=== PATIENT | female | born 1965 | race Caucasian/White ===

== ENCOUNTER → 2016-10-02 | Outpatient (CLI) | payer BC ==
[~2016-10-02] MED LIST: CETI10TA84 PO; FLNIN/ NAE; FLUT0.15 NAE; MULT-506 PO; MULT-513 PO; RECLAST IV.; SUMA1INJ5 IM; VALA500T39 PO
--- NOTE | 2016-10-02 10:18 | DIAGNOSTIC IMAGING REPORT ---
CT SCAN OF THE PARANASAL SINUSES CLINICAL HISTORY: Chronic sinusitis. COMPARISON STUDY: CT of the brain dated 07/09/2011. TECHNIQUE: High-resolution CT scan of the paranasal sinuses is performed. Images are reviewed in the axial, sagittal, and coronal planes. IV contrast was not administered for this examination. The examination is performed utilizing the fusion protocol. CT DOSE: 655.42 mGy.cm FINDINGS: Postoperative change: There are changes from previous maxillary antrectomy with antrostomy formation as well as ethmoid sinus resection. Maxillary antra: There is moderate bilateral mucosal thickening, left greater than right. Ethmoid cavities: Mild mucosal thickening is seen bilaterally, left greater than right. Sphenoid sinuses: Clear. Frontal sinuses: The frontal sinuses are diminutive. Mild mucosal thickening is seen on the left. Ostiomeatal complexes: The maxillary antrostomies are patent bilaterally. Frontoethmoidal and sphenoethmoidal recesses: Patent bilaterally. Carotid arteries: The carotid arteries are covered and without septal attachments. Ethmoid roofs: There is asymmetric elevation of the left ethmoid roof as compared to the right. Nasal turbinates: Normal in appearance. Nasal septum: There is mild rightward deviation of the bony nasal septum. Optic nerves: Covered. Orbits: The bony orbits are intact. Orbital contents are normal in appearance. Calvarium: The imaged calvarium is normal in appearance Mastoid air cells: Well pneumatized. Brain parenchyma: Partially visualized brain parenchyma is within normal limits. IMPRESSION: Paranasal sinus disease and postoperative change as above. Electronically signed by: Vipul Cole M.D. 10/02/2016 10:17 AM Dictated Date/Time: 10/02/2016 10:06 AM
== END | disposition home or self-care (01) ==
LOC: C.CTS 09:56
DX: J32.9 Chronic sinusitis, unspecified (principal)

== ENCOUNTER → 2016-11-23 | Outpatient (CLI) | payer BC ==
[2016-11-23 10:48] LABS: BASO % 0.3 %; BASO ABS # 0.01 K/uL (0-0.2); COMPLETE YES; EOS % 2.7 %; HEMATOCRIT 39.5 % (37-47); IG% 0.3 %; LYMPH % 32.2 %; LYMPH ABS # 0.96 K/uL (1.2-3.4); MEAN CELL VOLUME 105.3 fL (80-100); MEAN CORPUSCULAR HEMOGLOBIN 34.1 pg (25-34); MEAN CORPUSCULAR HGB CONC 32.4 g/dl (32-36); MEAN PLATELET VOLUME 10.3 fL (7.4-10.4); MONO % 10.4 %; NEUT % 54.1 %; PLATELET COUNT 200 K/uL (130-400); RED BLOOD COUNT 3.75 M/uL (4.2-5.4); WHITE BLOOD COUNT 2.98 K/uL (4.8-10.8)
[2016-11-23 10:50] LABS: POTASSIUM 4.3 mmol/L (3.5-5.1)
[2016-11-23 10:56] LABS: INR 0.9 (0.9-1.1); PARTIAL THROMBOPLASTIN RATIO 1.1
== END | disposition home or self-care (01) ==
LOC: C.CPL 09:31
DX: Z01.818 Encounter for other preprocedural examination (principal); Z01.810 Encounter for preprocedural cardiovascular examination

== ENCOUNTER → 2016-11-30 | Day surgery (SDC) | payer BC ==
[2016-11-29 09:53] VITALS: Ht 154.9 cm; Wt 70.5 kg
[~2016-11-30] VITALS: Ht 154.9 cm; Wt 70.5 kg
[~2016-11-30] MED LIST changes: +ATROPINE SULFATE 0.1 MG/ML 5ML SYR IV PRN; +CLINDAMYCIN PHOS 150 MG/ML 2 ML VIAL IV SCH; +DEXAMETHASONE SOD INJ 4 MG/ML VIAL ONE; +EpHEDrine SULFATE INJ 50 MG/ML AMP IV PRN; +EpINEphrine INJ 1MG/ML AMP 1 MG/ML AMP ONE; +FENTANYL CITRATE INJ 50 MCG/1 ML 2 ML VIAL IV PRN; +FENTANYL CITRATE INJ 50 MCG/1 ML 2 ML VIAL ONE; +LACTATED RINGER'S 1000ML 1,000 ML IV SCH; +LIDOCAINE 4% MPF SOAK 5 ML = 1 DOSE TOP ONE; +LIDOCAINE HCL 2% 2 ML VIAL (20MG/ML) ONE; +LIDOCAINE/EPINEPHRINE 1% INJ 50 ML VIAL ONE; +MIDAZOLAM HCL 1 MG/ML 2ML VIAL ONE; -MULT-513 PO; +ONDANSETRON INJ 2 MG/ML 2 ML VIAL IV PRN; +ONDANSETRON INJ 2 MG/ML 2 ML VIAL ONE; +OXYMETAZOLINE HCL 0.05% NA SPR 15 ML BTL PRN; +PROPOFOL IV EMULSION 10 MG/ML 20 ML VIAL IV ONE; -RECLAST IV.
[2016-11-30] MEDS: OXYMETAZOLINE HCL 0.05% NA SPR 15 ML BTL SCH ×2 (07:10→08:15)
--- NOTE | 2016-11-30 07:31 | History & Physical Bridge - [place] ---
H&P Re-Evaluation Bridge Note: I have examined the patient, reviewed the History & Physical and in the interval since the performance of the History & Physical I have noted the following changes of clinical significance: No changes noted
--- NOTE | 2016-11-30 08:47 | [facility] Operative Report ---
Operative Report Operative Date Nov 30, 2016. Pre-Operative Diagnosis Chronic Sinusitis Post-Operative Diagnosis Same Procedure(s) Performed Revision Left Endoscopic Sinus Surgery Surgeon Dr. Denise Spread Cutter Surgeon(s) None Estimated Blood Loss 5 mL Findings 1. SMALL RESIDUAL UNCINATE PROCESS WITH MUCOSAL BRIDGE INVOLVING LEFT MAXILLARY ANTROSTOMY LEADING TO RECIRCULATION PHENOMENA 2. MILD MUCOSAL THICKENING LEFT MAXILLARY SINUS 3. SYNECHIA BETWEEN LEFT MIDDLE TURBINATE AND LATERAL NASAL WALL Specimens None I attest to the content of the Intraoperative Record and any orders documented therein. Any exceptions are noted below.
--- NOTE | 2016-11-30 08:49 | Discharge Instructions ---
Discharge Instructions Date of Service Nov 30, 2016. Admission Reason for Admission: Chronic Sinusitis Discharge Discharge Diagnosis / Problem: SAME Discharge Goals Goal(s): Therapeutic intervention Activity Recommendations Activity Limitations: as noted below 1. LIGHT ACTIVITY FOR 2WEEKS 2. NO NOSE BLOWING FOR 2WEEKS . Current Hospital Diet Patient's current hospital diet: Discharge Diet Recommended Diet: Regular Diet Procedures Procedures Performed: Revision Left Endoscopic Sinus Surgery Pending Studies Studies pending at discharge: no Medical Emergencies . Who to Call and When: Medical Emergencies: If at any time you feel your situation is an emergency, please call 911 immediately. . Non-Emergent Contact Non-Emergency issues call your: Surgeon . . "Provider Documentation" section prepared by Cesar Denise. . VTE Core Measure Inpt VTE Proph given/why not?: SCD's
--- NOTE | 2016-11-30 09:10 | OPERATIVE REPORT ---
DATE OF OPERATION: 11/30/2016 PREOPERATIVE DIAGNOSIS: Chronic sinusitis. POSTOPERATIVE DIAGNOSIS: Chronic sinusitis. PROCEDURE: Revision left maxillary antrostomy. SURGEON: Dr. Denise. ANESTHESIA: General laryngeal mask airway. ESTIMATED BLOOD LOSS: 5 mL. FINDINGS: 1. Synechia between the left middle turbinate and lateral nasal wall. 2. Mucosal bridge involving the left maxillary antrostomy likely leading to recirculation phenomenon. 3. Mild amount of mucus and mucosal thickening involving the left maxillary sinus. SPECIMENS: None. COMPLICATIONS: None. INDICATIONS FOR THE PROCEDURE: The patient is a 51-year-old female with a history of chronic rhinosinusitis who has undergone endoscopic sinus surgery by another surgeon in 2007 and continues to have problems with chronic sinusitis despite systemic antibiotics and steroids. A posttreatment CT scan of sinuses revealed bilateral maxillary sinus mucosal thickening, but on the left hand side there was residual uncinate process as well as what appeared to be blocking of the natural opening of the maxillary sinus. She has symptoms in this particular location. She presents for the above-mentioned procedure on an outpatient elective basis. OPERATION AND FINDINGS: DETAILS OF PROCEDURE: After informed consent had been obtained from the patient, the patient wheeled to the operating room and placed on the operating table in the supine position. Monitors were placed. After induction of general anesthesia via laryngeal mask airway. The patient was prepped in the usual fashion for endoscopic sinus surgery. Lidocaine and epinephrine pledget was placed into the left nasal cavity and pressure applied. After allowing adequate time for vasoconstriction, the pledget was removed and a [place] elevator was used to medialize the left middle turbinate. Of note, there was a synechia involving the middle turbinate to the lateral nasal wall which was lysed using the freer elevator. A residual uncinate process was then injected with 1% lidocaine with 1:100,000 epinephrine. After allowing adequate time for vasoconstriction, the residual uncinate process was removed using powered instrumentation. There was a mucosal bridge involving the left maxillary sinus maxillary antrostomy and this was taken down using powered instrumentation as well. Mild amount of mucus was suctioned free of the left maxillary sinus. Merogel dressing was then placed into the left ethmoid cavity/middle meatus. The nasal cavity and nasopharynx were then suctioned. This marked the end of the case. The patient tolerated the procedure well. There were no apparent complications. The patient had her laryngeal mask airway removed and was transferred to the recovery room in stable condition. I attest to the content of the Intraoperative Record and any orders documented therein. Any exceptio ns are noted below.
[2016-11-30 10:32] VITALS: BP 112/61; PULSE 55; O2SAT 98
--- NOTE | 2016-11-30 10:37 | Anesthesia Progress Nt - [facility] ---
Anesthesia Post Op Note Date & Time Nov 30, 2016 at 10:33 Vital Signs Pain Intensity: 3 Vital Signs Past 12 Hours Date Time Temp Pulse Resp B/P Pulse Ox O2 Delivery O2 Flow Rate FiO2 11/30/16 10:32 55 16 112/61 98 Room Air 11/30/16 10:00 36.5 52 16 107/62 98 Room Air 11/30/16 09:56 52 12 11/30/16 09:56 51 12 100 11/30/16 09:55 113/68 11/30/16 09:51 51 13 11/30/16 09:51 51 13 99 11/30/16 09:50 114/59 11/30/16 09:46 53 18 11/30/16 09:46 53 18 100 11/30/16 09:44 116/67 11/30/16 09:41 52 16 99 11/30/16 09:41 53 16 11/30/16 09:41 36.7 99 Room Air 11/30/16 09:40 51 12 11/30/16 09:40 50 12 115/68 98 11/30/16 09:35 50 14 11/30/16 09:35 50 14 98 11/30/16 09:34 116/65 11/30/16 09:30 52 11 11/30/16 09:30 53 11 102/62 99 11/30/16 09:25 52 8 11/30/16 09:25 52 8 98/58 100 11/30/16 09:20 56 12 11/30/16 09:20 56 12 95/58 100 11/30/16 09:15 57 15 97 11/30/16 09:15 56 15 11/30/16 09:14 103/66 11/30/16 09:10 57 11 11/30/16 09:10 57 11 100 11/30/16 09:09 103/61 11/30/16 09:05 58 16 100 11/30/16 09:05 57 16 11/30/16 09:04 101/57 11/30/16 09:03 56 13 100 11/30/16 09:03 57 13 11/30/16 09:00 101/57 11/30/16 08:58 36.5 59 12 107/59 100 Humidified Oxygen 7 Mask 11/30/16 08:58 60 107/59 100 11/30/16 08:58 60 11/30/16 06:57 36.8 66 20 119/73 96 Room Air Notes Mental Status: alert / awake / arousable, participated in evaluation Pt Amnestic to Procedure: Yes Nausea / Vomiting: adequately controlled Pain: adequately controlled Airway Patency, RR, SpO2: stable & adequate BP & HR: stable & adequate Hydration State: stable & adequate Anesthetic Complications: no major complications apparent The patient is a 51 y/o female with a h/o OA, hepatitis s/p L sinus surgery with Dr. Denise. Intraoperatively, the patient did well with no issues. In recovery, she complained of some substernal pressure which was nonradiating. She stated that felt a bit nauseated as well. No diaphoresis, no lightheaded or dizziness or any other complaints. Her vital signs were stable. She was given zofran 4mg IV and a 12 lead EKG was also done. Shortly after the zofran was given she stated that the pressure resolved and that she felt much better. EKG showed no ischemic changes, HR 51. She continued to do well in Phase II recovery with no complaints. She was instructed to go to the ED with any chest pain, shortness of breath, lightheaded or dizziness or with any other concerns. She understands and agrees.
== END | disposition home or self-care (01) ==
LOC: X.SURG 06:41
DX: J32.9 Chronic sinusitis, unspecified (principal); Z98.890 Other specified postprocedural states; Z90.710 Acquired absence of both cervix and uterus; Z98.84 Bariatric surgery status; Z88.0 Allergy status to penicillin; Z83.3 Family history of diabetes mellitus; Z82.5 Family history of asthma and other chronic lower respiratory diseases; Z82.49 Family history of ischemic heart disease and other diseases of the circulatory system; Z84.89 Family history of other specified conditions; Z82.2 Family history of deafness and hearing loss; Z80.9 Family history of malignant neoplasm, unspecified

== ENCOUNTER 2016-12-07 23:29 | Emergency (ER) | payer BC ==
[~2016-12-07] VITALS: Ht 162.6 cm; Wt 70.2 kg
[~2016-12-07 23:29] MED LIST changes: -ATROPINE SULFATE 0.1 MG/ML 5ML SYR IV PRN; -CETI10TA84 PO; -CLINDAMYCIN PHOS 150 MG/ML 2 ML VIAL IV SCH; -DEXAMETHASONE SOD INJ 4 MG/ML VIAL ONE; -EpHEDrine SULFATE INJ 50 MG/ML AMP IV PRN; -EpINEphrine INJ 1MG/ML AMP 1 MG/ML AMP ONE; -FENTANYL CITRATE INJ 50 MCG/1 ML 2 ML VIAL IV PRN; -FENTANYL CITRATE INJ 50 MCG/1 ML 2 ML VIAL ONE; -FLNIN/ NAE; -FLUT0.15 NAE; -LACTATED RINGER'S 1000ML 1,000 ML IV SCH; -LIDOCAINE 4% MPF SOAK 5 ML = 1 DOSE TOP ONE; -LIDOCAINE HCL 2% 2 ML VIAL (20MG/ML) ONE; -LIDOCAINE/EPINEPHRINE 1% INJ 50 ML VIAL ONE; -MIDAZOLAM HCL 1 MG/ML 2ML VIAL ONE; -ONDANSETRON INJ 2 MG/ML 2 ML VIAL IV PRN; -ONDANSETRON INJ 2 MG/ML 2 ML VIAL ONE; -OXYMETAZOLINE HCL 0.05% NA SPR 15 ML BTL PRN; -PROPOFOL IV EMULSION 10 MG/ML 20 ML VIAL IV ONE; -SUMA1INJ5 IM
[2016-12-07 23:41] VITALS: TEMP 36.4; Ht 162.6 cm; Wt 70.2 kg
[2016-12-08] MEDS ORDERED: KETOROLAC TROMETHAMINE 30 MG/ML VIAL IV STA (01:11)
[2016-12-08] MEDS ORDERED: DiphenhydrAMINE HCL 50 MG/ML VIAL IV STA (01:11)
[2016-12-08] MEDS ORDERED: METOCLOPRAMIDE HCL INJ 5 MG/ML 2 ML VIAL IV STA (01:11)
--- NOTE | 2016-12-08 01:12 | EMERGENCY ROOM VISIT NOTE ---
History Report prepared by Ivett: Lilliam Kohler Under the Supervision of: Dr. Barbara Vides D.O. First contact with patient: 00:14 Chief Complaint: HEADACHE Stated Complaint: MIGRAINE History of Present Illness The patient is a 51 year old female who presents to the Emergency Room with complaints of a persistent migraine-headache that began three days ago. She currently rates her discomfort as a 10/10 in severity. The patient notes a history of migraine-headaches, stating that she gets approximately three per week. She states that her headache radiates down her neck and into her shoulders. The patient notes difficulty walking and picking up her neck due to the pain. She states that typically she does not get pain into her neck or her migraines being this severe. The patient states that she has tried taking three Imitrex for her symptoms without relief. She additionally associates nausea and chills with her symptoms today, noting those are typical associated symptoms with her migraines. The patient denies any fever or vomiting. Source of History: patient Onset: three days ago Position: head Symptom Intensity: 10/10 Quality: other (migraine-headache) Timing: other (persistent) Associated Symptoms: + chills, + nausea, + neck pain, No fevers, No vomiting Note: Associated Symptoms: Shoulder pain Review of Systems See HPI for pertinent positives & negatives. A total of 10 systems reviewed and were otherwise negative. Past Medical & Surgical Medical Problems: (1) Aplastic Anemias Nec (2) Calculus Of Kidney (3) Depressive Disorder Nec (4) Endometriosis Nec (5) Ext Hemrrhoid W Comp Nec (6) Hepatitis Nos (7) Migraine Unspecified W/O Intractable Migraine (8) Osteoporosis Nos Surgical Problems: (1) Bariatric Surgery Status (2) History of cholecystectomy Social History Smoking Status: Never Smoker Alcohol Use: none Drug Use: none Marital Status: Occupation Status: employed Current/Historical Medications Scheduled Cetirizine (Zyrtec), 10 MG PO QAM Multivitamin (Multivitamin), 1 TAB PO QAM Valacyclovir Hcl (Valtrex), 500 MG PO QAM Allergies Coded Allergies: Tramadol (Verified Allergy, Severe, ITCHING, RASH, GI UPSET, 12/08/16) Cephalosporins (Verified Allergy, Unknown, HIVES, 12/08/16) Codeine (Verified Allergy, Unknown, GI UPSET, 12/08/16) Gabapentin (Verified Allergy, Unknown, HALLUCINATIONS, 12/08/16) Hydrocodone (Verified Allergy, Unknown, GI UPSET, 12/08/16) Nitrofurantoin (Verified Allergy, Unknown, GI UPSET, 12/08/16) Oxycodone (Verified Allergy, Unknown, TAKES WITH BENADRYL FOR ITCHING AT HOME (PERCOCET); GI UPSET, 12/08/16) Penicillins (Verified Allergy, Unknown, HIVES, 12/08/16) Promethazine (Verified Allergy, Unknown, UNKNOWN REACTION, 12/08/16) Morphine (Verified Adverse Reaction, Unknown, HIVES, 12/08/16) Physical Exam Vital Signs Date Time Temp Pulse Resp B/P Pulse Ox O2 Delivery O2 Flow Rate FiO2 12/08/16 04:07 59 18 130/76 96 Room Air 12/08/16 02:17 61 18 107/67 96 Room Air 12/07/16 23:41 36.4 65 20 127/70 98 Room Air Physical Exam HEENT: Head - normocephalic and atraumatic Pupils are equal, round, and reactive to light. Extraocular eye muscles are intact, and sclera are anicteric. Nose - moist nasal mucosa without discharge. Mouth - moist buccal mucosa. Oropharynx is nonerythematous and there is no tonsillar exudate or edema noted. Neck: Supple; no JVD, nuchal rigidity, cervical lymphadenopathy. Heart: Regular rate and rhythm. There is a normal S1 and S2 with no murmurs, clicks, or gallops appreciated. Lungs: Clear to auscultation bilaterally with no wheezes, rales, or rhonchi. Abdomen: Soft, completely nontender, nondistended, with good bowel sounds. There are no palpable pulsatile masses or hepatosplenomegaly. There is no guarding, rigidity, or rebound noted. Extremities: No evidence of cyanosis, clubbing, or edema. There are easily palpable peripheral pulses. Skin: warm and dry with good turgor and no rashes. Medical Decision & Procedures Laboratory Results 12/08/16 01:25 Red Blood Count 3.92, Mean Corpuscular Volume 102.8, Mean Corpuscular Hemoglobin 35.2, Mean Corpuscular Hemoglobin Concent 34.2, Mean Platelet Volume 10.1, Neutrophils (%) (Auto) 51.2, Lymphocytes (%) (Auto) 33.5, Monocytes (%) ( Auto) 13.2, Eosinophils (%) (Auto) 1.7, Basophils (%) (Auto) 0.2, Neutrophils # (Auto) 2.40, Lymphocytes # (Auto) 1.57, Monocytes # (Auto) 0.62, Eosinophils # ( Auto) 0.08, Basophils # (Auto) 0.01 12/08/16 01:25 Test 12/08/16 01:25 White Blood Count 4.69 K/uL (4.8-10.8) Red Blood Count 3.92 M/uL (4.2-5.4) Hemoglobin 13.8 g/dL (12.0-16.0) Hematocrit 40.3 % (37-47) Mean Corpuscular Volume 102.8 fL (80-100) Mean Corpuscular Hemoglobin 35.2 pg (25-34) Mean Corpuscular Hemoglobin Concent 34.2 g/dl (32-36) Platelet Count 170 K/uL (130-400) Mean Platelet Volume 10.1 fL (7.4-10.4) Neutrophils (%) (Auto) 51.2 % Lymphocytes (%) (Auto) 33.5 % Monocytes (%) (Auto) 13.2 % Eosinophils (%) (Auto) 1.7 % Basophils (%) (Auto) 0.2 % Neutrophils # (Auto) 2.40 K/uL (1.4-6.5) Lymphocytes # (Auto) 1.57 K/uL (1.2-3.4) Monocytes # (Auto) 0.62 K/uL (0.11-0.59) Eosinophils # (Auto) 0.08 K/uL (0-0.5) Basophils # (Auto) 0.01 K/uL (0-0.2) RDW Standard Deviation 46.9 fL (36.4-46.3) RDW Coefficient of Variation 12.4 % (11.5-14.5) Immature Granulocyte % (Auto) 0.2 % Immature Granulocyte # (Auto) 0.01 K/uL (0.00-0.02) Anion Gap 5.0 mmol/L (3-11) Est Creatinine Clear Calc Drug Dose 82.2 ml/min Estimated GFR () 102.9 Estimated GFR (Non- 88.8 BUN/Creatinine Ratio 18.2 (10-20) Calcium Level 9.2 mg/dl (8.5-10.1) Laboratory results per my review. Medications Administered Medications (Trade) Dose Ordered Sig/Calli Route Start Time Stop Time Status Last Admin Dose Admin Ketorolac Tromethamine (Toradol Inj) 30 mg NOW STAT IV 12/08/16 01:11 12/08/16 01:13 DC 12/08/16 01:32 30 MG Diphenhydramine HCl (Benadryl Inj) 25 mg NOW STAT IV 12/08/16 01:11 12/08/16 01:13 DC 12/08/16 01:32 25 MG Metoclopramide HCl (Reglan Inj) 10 mg NOW STAT IV 12/08/16 01:11 12/08/16 01:13 DC 12/08/16 01:32 10 MG Hydromorphone HCl (Dilaudid Inj) 2 mg NOW STAT IV 12/08/16 03:41 12/08/16 03:42 DC 12/08/16 04:05 2 MG Procedure The patient was treated with Reglan Inj 10 mg IV, Benadryl Inj 25 mg IV, Toradol Inj 30 mg IV. Dilaudid-2 mg IV ED Course 0057: Past medical records reviewed. The patient was evaluated in room C7. A complete history and physical exam was performed. An IV lock was initiated and labs are drones above. 0111: Ordered Reglan Inj 10 mg IV, Benadryl Inj 25 mg IV, Toradol Inj 30 mg IV. 0340: I reevaluated the patient and she is feeling no better. 0341: Ordered Dilaudid Inj 2 mg IV. 0425: I reevaluated the patient and she is feeling much better. I discussed the exam findings with her and I discussed the treatment plan. She verbalized complete understanding and agreement. She is ready to go home. Medical Decision The patient is a 51 year old female who presents to the ED with a migraine headache. Differential diagnosis includes cluster headache, tension headache, meningitis, migraine, cervical strain. Lab interpretation: white count 4.6, stable H&H, normal renal function, normal glucose. This is a 51-year-old female patient who presents to the emergency department with an intractable migraine. Initial round of medications did not seem to help patient's symptoms. She did get significant relief with the IV Dilaudid. The patient rated her pain and then as a 5/10. I asked if she would like something more for pain but she declined. She wished to go home to try and sleep. I've encouraged the patient to return here to the emergency department she developed any worsening neck pain or stiffness. Impression Primary Impression: Intractable migraine Scribe Attestation The scribe's documentation has been prepared under my direction and personally reviewed by me in its entirety. I confirm that the note above accurately reflects all work, treatment, procedures, and medical decision making performed by me. Departure Information Dispostion Home / Self-Care Referrals Amy Sotomayor,Cirilo.O. (PCP) Forms HOME CARE DOCUMENTATION FORM, IMPORTANT VISIT INFORMATION Patient Instructions ED Headache Migraine, My [facility] Additional Instructions Rest Follow up with PCP this or on Saturday if headache continues
[2016-12-08 01:36] LABS: BASO % 0.2 %; BASO ABS # 0.01 K/uL (0-0.2); COMPLETE YES; EOS % 1.7 %; HEMATOCRIT 40.3 % (37-47); IG% 0.2 %; LYMPH % 33.5 %; LYMPH ABS # 1.57 K/uL (1.2-3.4); MEAN CELL VOLUME 102.8 fL (80-100); MEAN CORPUSCULAR HEMOGLOBIN 35.2 pg (25-34); MEAN CORPUSCULAR HGB CONC 34.2 g/dl (32-36); MEAN PLATELET VOLUME 10.1 fL (7.4-10.4); MONO % 13.2 %; NEUT % 51.2 %; PLATELET COUNT 170 K/uL (130-400); RED BLOOD COUNT 3.92 M/uL (4.2-5.4); WHITE BLOOD COUNT 4.69 K/uL (4.8-10.8)
[2016-12-08 02:02] LABS: BUN/CREATININE RATIO 18.2 (10-20); CALCIUM 9.2 mg/dl (8.5-10.1); CREATININE 0.77 mg/dl (0.60-1.20); POTASSIUM 3.8 mmol/L (3.5-5.1)
[2016-12-08] MEDS ORDERED: HYDROmorphone INJ 2 MG/ML SYR/VIAL IV STA (03:41)
[2016-12-08 04:07] VITALS: BP 130/76; PULSE 59; O2SAT 96
[2017-03-05] MEDS ORDERED: CETI10TA84 PO (16:43)
== END 2016-12-08 04:35 | disposition home or self-care (01) ==
LOC: C.EDB 23:31 → C.EDC 12-08 04:35
DX: G43.919 Migraine, unspecified, intractable, without status migrainosus (principal); M54.2 Cervicalgia; F32.9 Major depressive disorder, single episode, unspecified; M81.0 Age-related osteoporosis without current pathological fracture; Z79.899 Other long term (current) drug therapy; Z87.42 Personal history of other diseases of the female genital tract; Z87.442 Personal history of urinary calculi

== ENCOUNTER 2017-03-05 17:31 | Emergency (ER) | payer BC ==
[~2017-03-05] VITALS: Ht 154.9 cm; Wt 69.4 kg
[~2017-03-05 17:31] MED LIST changes: +CETI10TA84 PO
[2017-03-05 17:39] VITALS: TEMP 36.7; Ht 154.9 cm; Wt 69.4 kg
[2017-03-05] MEDS ORDERED: XYLOCAINE 1%/SOD BICARB 20 ML VIAL INFIL ONE (17:45)
--- NOTE | 2017-03-05 18:03 | EMERGENCY ROOM VISIT NOTE ---
ED Visit Note First contact with patient: 17:42 CHIEF COMPLAINT: Left Hand laceration HISTORY OF PRESENT ILLNESS: This 52-year-old female patient cut the left hand accidentally with a knife just prior to arrival. The patient states that she was cutting a watermelon holding a knife in her right hand and accidentally cut into her left hand. The bleeding stopped shortly after the injury and there is no weakness or numbness of the hand or fingers. The patient's tetanus is up-to- date. REVIEW OF SYSTEMS: 6 system review was performed and was negative unless stated otherwise in history of present illness. PMH: The patient is healthy; kidney stones, , cholecystectomy, gastric bypass, hysterectomy, carpal tunnel surgery, nose surgery SOCIAL HISTORY: Patient lives with her . The patient denies any tobacco or alcohol use PHYSICAL EXAM: Vital Signs: Were reviewed Reviewed Nurse's notes. GENERAL: 52- year-old white female appears in no acute distress. MENTAL Status: Alert and oriented 3. LEFT HAND: There is a 2 cm long laceration on the palmar aspect of the hand just proximal to the thumb. The edges are gaping widely apart. There is no foreign material in the wound and it looks clean. There is no active bleeding. No deep structures such as tendons or nerves are seen in the base of the wound. Extension and flexion of the fingers is full and strong. Sensation to pain and light touch is intact. EMERGENCY DEPARTMENT COURSE: Wound Repair: Complexity: Basic. Verbal consent was obtained after the risks and benefits were explained, including but not limited to bleeding, scarring, infection, pain, and bone/joint /nerve damage. The skin was prepped with betadine and a sterile field set. The wound was anesthetized with 4.8 ml of 1% buffered lidocaine. With direct pressure the bleeding subsided. Copious irrigation was performed using sterile saline. The wound was explored for foreign bodies and none found. Debridement was not performed. The wound edges were approximated using 5-0 Ethilon with 4 simple interrupted sutures. Hemostasis and excellent approximation was achieved. Antibacterial ointment and a sterile dressing applied. Detailed wound care instructions and signs and symptoms of infection reviewed with the patient. No complications and the patient tolerated the procedure well. DIAGNOSIS: 2 cm left Hand laceration DISCHARGE INSTRUCTIONS & TREATMENT: Keep wound clean and dry. No water on the area for 12-24 hrs then no soaking until sutures removed. Do not allow any crusting or dried blood to accumulate on sutures. If this occurs, use a 1:1 solution of hydrogen peroxide/water on a Q-tip to clean the wound. Use an antibiotic ointment for 3-4 days, then let wound dry. Suture removal in 8 days. Follow up sooner for any signs of infection (increasing redness, swelling , drainage). Ice and elevate for swelling and pain. Tylenol 650 mg every 6 hrs for pain. Problem List Surgical Problems: (1) History of cholecystectomy Status: Resolved Current/Historical Medications Scheduled Cetirizine (Zyrtec), 10 MG PO QAM Multivitamin (Multivitamin), 1 TAB PO QAM Valacyclovir Hcl (Valtrex), 500 MG PO QAM Allergies Coded Allergies: Tramadol (Verified Allergy, Severe, ITCHING, RASH, GI UPSET, 12/08/16) Cephalosporins (Verified Allergy, Unknown, HIVES, 12/08/16) Codeine (Verified Allergy, Unknown, GI UPSET, 12/08/16) Gabapentin (Verified Allergy, Unknown, HALLUCINATIONS, 12/08/16) Hydrocodone (Verified Allergy, Unknown, GI UPSET, 12/08/16) Nitrofurantoin (Verified Allergy, Unknown, GI UPSET, 12/08/16) Oxycodone (Verified Allergy, Unknown, TAKES WITH BENADRYL FOR ITCHING AT HOME (PERCOCET); GI UPSET, 12/08/16) Penicillins (Verified Allergy, Unknown, HIVES, 12/08/16) Promethazine (Verified Allergy, Unknown, UNKNOWN REACTION, 12/08/16) Morphine (Verified Adverse Reaction, Unknown, HIVES, 12/08/16) Vital Signs Date Time Temp Pulse Resp B/P (MAP) Pulse Ox O2 Delivery O2 Flow Rate FiO2 03/05/17 17:39 36.7 65 16 123/73 98 Room Air Departure Information Referrals Amy Sotomayor D.O. (PCP) Patient Instructions My [facility]
[2017-03-05 18:14] VITALS: BP 127/77; PULSE 57; O2SAT 100
[2017-03-05] MEDS ORDERED: FLNIN/ NAE (18:15)
[2017-03-05] MEDS ORDERED: SUMA1INJ5 IM (18:15)
== END 2017-03-05 18:14 | disposition home or self-care (01) ==
LOC: C.EDB 17:32 → C.EDD 18:14
DX: S61.412A Laceration without foreign body of left hand, initial encounter (principal); W26.0XXA Contact with knife, initial encounter; Y93.G1 Activity, food preparation and clean up; Z87.442 Personal history of urinary calculi; Z90.49 Acquired absence of other specified parts of digestive tract; Z90.710 Acquired absence of both cervix and uterus; Z98.84 Bariatric surgery status; Z79.899 Other long term (current) drug therapy